=== PATIENT | female | born 1995 | race African-American/Black ===

== ENCOUNTER 2017-09-05 20:20 | Emergency (ER) | payer OTHER ==
[2017-09-05] MEDS ORDERED: Ondansetron ODT 4 MG TAB ONE (21:04)
[2017-09-05 21:45] LABS: Bilirubin Negative (Negative); Blood, Urine Negative (Negative); Glucose, Urine (Dipstick) Negative (Negative); Ketone, Urine Negative (Negative); Nitrite Negative (Negative); Protein, Urine (Dipstick) Negative (Neg-Trace); Urobilinogen 0.2 mg/dL (0.2-1.0)
[2017-09-05 21:47] LABS: Bacteria/HPF 1+ HPF (None Seen); Hyaline Casts/LPF 0-3 HYALINE CAST LPF (0-3 Hyaline)
[2017-09-05 22:02] LABS: RBC/HPF 0-3 HPF (0-3)
== END 2017-09-05 22:23 | disposition home or self-care (01) ==
LOC: ERS 20:20
DX: O21.9 Vomiting of pregnancy, unspecified (principal); O99.89 Other specified diseases and conditions complicating pregnancy, childbirth and the puerperium; M25.551 Pain in right hip
CPT/HCPCS: 81003; 81015; 96360; Q0162

== ENCOUNTER 2017-10-04 19:33 | Emergency (ER) | payer OTHER ==
--- NOTE | 2017-10-12 15:48 | EKG ---
Test Reason : Blood Pressure : / mmHG Vent. Rate : 081 BPM Atrial Rate : 081 BPM P-R Int : 146 ms QRS Dur : 080 ms QT Int : 388 ms P-R-T Axes : 045 018 014 degrees QTc Int : 450 ms Normal sinus rhythm with sinus arrhythmia Normal ECG Confirmed by TARA GUSMAN MD ([id number]), manager editorial STEPHANIE JACINTO ([id number]) on 10/12/2017 3:47:47 PM Referred By: Confirmed By:TARA GUSMAN MD
== END 2017-10-04 20:40 | disposition home or self-care (01) ==
LOC: ERS 19:33
DX: O99.512 Diseases of the respiratory system complicating pregnancy, second trimester (principal); J06.9 Acute upper respiratory infection, unspecified; Z3A.16 16 weeks gestation of pregnancy
CPT/HCPCS: 87804; 93005